=== PATIENT | male | born 1965 | race Caucasian/White ===

== ENCOUNTER 2025-02-19 02:52 | Emergency (ER) | payer OTHER, SELFPAY ==
--- NOTE | ~2025-02-19 | CT_ITS ---
EXAMINATION: CT abdomen pelvis wo con DATE: 02/19/2025 04:31 INDICATION: Left flank pain. TECHNIQUE: Computed tomography (CT) of the abdomen and pelvis was performed without intravenous contrast. Automated exposure control and iterative reconstruction technique were employed. The dose-length product was 289.69 mGy-cm. COMPARISON: None. FINDINGS: The visualized portions of the lung bases demonstrate mild atelectasis. No pleural effusion. The heart size is normal. No pericardial effusion. There is diffuse hepatic steatosis. The gallbladder, spleen, pancreas, adrenal glands, and right kidney are normal. There is mild left hydronephrosis and hydroureter. There is a 3 mm stone at the left ureterovesicular junction. There is prominent fat in left inguinal canal that may be a hernia. There is diverticulosis of the colon without evidence of diverticulitis. The appendix is normal. There are no dilated loops of bowel. There are no pathologically enlarged lymph nodes. There is no free intraperitoneal fluid. There is mild lumbar spondylosis and moderate thoracic spondylosis. IMPRESSION: 1. 3 mm stone at left ureterovesicular junction with mild left hydronephrosis and hydroureter. Reviewed, dictated and finalized at location E. IMPRESSION: 1. 3 mm stone at left ureterovesicular junction with mild left hydronephrosis a nd hydroureter.
[2025-02-19 02:54] VITALS: BP 161/91; PULSE 83; RESP 18; TEMP 36.6; O2SAT 98
[2025-02-19] MEDS: MORPHINE SULFATE (*CRX) 4 MG/ML INJ IV PUSH (03:14)
[2025-02-19] MEDS: ONDANSETRON INJ 4 MG/2 ML VIAL IV PUSH (03:14)
[2025-02-19] MEDS: SODIUM CHLORIDE 0.9% IV 1,000 ML 999 ML IV CONT (03:15)
[2025-02-19 03:22] LABS: Hematocrit 49.6 % (42.0-52.0); Hemoglobin 16.6 g/dL (14.0-18.0); Immature Granulocyte Percent A 0.8 % (0-0.5); Lymphocytes Absolute Auto 1.50 K/mm3 (0.9-3.2); Mean Corpuscular HGB Conc 33.5 g/dl (32-36); Mean Corpuscular Hemoglobin 31.0 pg (26-34); Mean Corpuscular Volume 92.7 fl (80-100); Nucleated Red Blood Cells Absolute Auto 0.000 K/mm3 (0.0-0.012); Nucleated Red Blood Cells Perc 0.0 % (0.0-0.2); Platelet Count Result 170 k/mm3 (150-375); Red Blood Count 5.35 M/mm3 (4.6-6.20); White Blood Count 11.8 K/mm3 (4.5-10.0)
[2025-02-19 03:36] LABS: Add Urine Microscopic? NO; Appearance Urine Clear (Clear); Glucose Urine UA Negative (Negative); Leukocyte Esterase Ur Negative LEU/UL (Negative); Nitrate Urine Negative (Negative); Specific Grav Ur 1.020 (1.001-1.035)
[2025-02-19 03:38] LABS: Alanine Aminotransferase 34 U/L (6-50); Albumin Level 4.3 g/dL (3.5-5.1); Alkaline Phosphatase 72 U/L (38-126); Anion Gap 9 mmol/L (4-12); Aspartate Amino Transferase 41 U/L (17-59); Bilirubin,Total 0.7 mg/dL (0.2-1.3); Blood Urea Nitrogen 22 mg/dL (9-20); Calcium 8.6 mg/dL (8.4-10.2); Carbon Dioxide 23 mmol/L (22-30); Chloride 104 mmol/L (98-107); Estimated CRCL calculation 52 ml/min; Estimated Glomerular Filt Rate 51; Glucose 137 mg/dL (65-110); Lipase 201 U/L (23-300); Magnesium 2.0 mg/dL (1.6-2.3); Potassium 4.2 mmol/L (3.4-5.0); Sodium 136 mmol/L (137-145); Total Protein 7.3 g/dL (6.3-8.2)
--- NOTE | 2025-02-19 04:12 | ED_ITS ---
HPI - Back Pain/Injury General Chief Complaint: Back Pain/Injury <Frantz Mckeon MD - Last Filed: 02/19/25 07:02> Stated Complaint: L lower back pain <Frantz Mckeon MD - Last Filed: 02/19/25 07:02> Time Seen by Provider: 02/19/25 03:03 <Frantz Mckeon MD - Last Filed: 02/19/25 07:02> History of Present Illness HPI Narrative: Patient is a 59-year-old male who presents the emergency department this evening complaining of left lower back / flank pain. Patient states that symptoms started after he went to the gym today and was lifting weights. Initially he thought it was due to that, however, pain continued to get worse and persisted. Patient states that he has had history of kidney stones and states that this pain does feel similar to that more than musculoskeletal strain. Admits that the pain does radiate to his left groin region. Denies any urinary symptoms including hematuria or dysuria. No additional symptoms or concerns at this time. <Frantz Mckeon MD - Last Filed: 02/19/25 07:02> Related Data Allergies/Adverse Reactions: Allergies Allergy/AdvReac Type Severity Reaction Status Date / Time No Known Allergies Allergy Verified 02/19/25 02:54 <Frantz Mckeon MD - Last Filed: 02/19/25 07:02> Review of Systems 2 Review of Systems: All systems are reviewed and are negative unless stated otherwise in the HPI. <Frantz Mckeon MD - Last Filed: 02/19/25 07:02> Exam 2 Narrative: General: Alert, awake, afebrile, in no acute distress. HEENT: PERRL, no rhinorrhea, no post nasal drip, oropharynx clear. Neck: Trachea midline, no JVD, no lymphadenopathy. Cardiovascular: Regular rate and rhythm, no murmurs, rubs or gallops, no peripheral edema. Respiratory: Clear to auscultation bilaterally, no tachypnea, no wheezing, no rhonchi, no rubs, no respiratory distress. Abdomen: Soft, nontender, nondistended, no rebound, no guarding, no peritoneal signs. Musculoskeletal: No joint swelling or deformity, normal muscle tone. Back: No midline tenderness to palpation over the thoracolumbar spine. Skin: No rashes or petechia, no signs of infection. Psychiatric: Alert and oriented, normal behavior and judgment for situation. Neurological: Alert and oriented to person, place, and time. Follows all commands. No focal deficits, speech is clear and fluent. <Frantz Mckeon MD - Last Filed: 02/19/25 07:02> Course Course Emergency Course: Patient resting comfortably. Informed results. Appropriate for discharge home. <Anthony Cintron MD - Last Filed: 02/19/25 08:02> Vital Signs Vital signs: Vital Signs Temperature 97.8 F 02/19/25 02:54 Pulse Rate 83 02/19/25 02:54 Respiratory Rate 18 02/19/25 02:54 Blood Pressure 161/91 H 02/19/25 02:54 Pulse Oximetry 98 02/19/25 02:54 Oxygen Delivery Room Air 02/19/25 02:54 Temperature 97.8 F 02/19/25 02:54 Pulse Rate 85 02/19/25 07:00 Respiratory Rate 14 02/19/25 07:00 Blood Pressure 143/75 H 02/19/25 07:00 Pulse Oximetry 98 02/19/25 07:00 Oxygen Delivery Room Air 02/19/25 02:54 <Frantz Mckeon MD - Last Filed: 02/19/25 07:02> Vital Signs Temperature 97.8 F 02/19/25 02:54 Pulse Rate 83 02/19/25 02:54 Respiratory Rate 18 02/19/25 02:54 Blood Pressure 161/91 H 02/19/25 02:54 Pulse Oximetry 98 02/19/25 02:54 Oxygen Delivery Room Air 02/19/25 02:54 Temperature 97.8 F 02/19/25 02:54 Pulse Rate 85 02/19/25 07:00 Respiratory Rate 14 02/19/25 07:00 Blood Pressure 143/75 H 02/19/25 07:00 Pulse Oximetry 98 02/19/25 07:00 Oxygen Delivery Room Air 02/19/25 02:54 <Anthony Cintron MD - Last Filed: 02/19/25 08:02> MDM - Back Pain/Injury MDM Narrative Medical decision making narrative: The patient was evaluated by myself in the emergency department. History is obtained from patient who is an independent historian and physical exam was performed. External medical records were reviewed at this time. IV was established and pertinent tests were ordered. Patient was administered 1 L IV fluid bolus with normal saline, 4 mg of IV morphine and 4 mg of IV Zofran with improvement of his symptoms. Laboratory results obtained revealing a creatinine of 1.3, otherwise unremarkable. No previous blood work available for comparison. Urinalysis unremarkable. Imaging studies obtained included CT abdomen and pelvis without IV contrast which is currently pending. Patient was signed out to AM ED physician pending CT scan. <Frantz Mckeon MD - Last Filed: 02/19/25 07:02> Lab Data Result diagrams: 02/19/25 03:13 02/19/25 03:13 <Frantz Mckeon MD - Last Filed: 02/19/25 07:02> Labs: Lab Results 02/19/25 02/19/25 Range/Units 03:03 03:13 WBC 11.8 H (4.5-10.0) K/mm3 RBC 5.35 (4.6-6.20) M/mm3 Hgb 16.6 (14.0-18.0) g/dL Hct 49.6 (42.0-52.0) % MCV 92.7 (80-100) fl MCH 31.0 (26-34) pg MCHC 33.5 (32-36) g/dl RDW 12.9 (11.5-14.5) % Plt Count 170 (150-375) k/mm3 MPV 10.4 (7.4-10.4) fl Immature Gran % (Auto) 0.8 H (0-0.5) % Neut % (Auto) 81.8 H (45.5-73.1) % Lymph % (Auto) 12.7 L (18.3-44.2) % Republic % (Auto) 4.2 (2.6-8.5) % Eos % (Auto) 0.2 (0-4.4) % Baso % (Auto) 0.3 (0.2-1.2) % Lymph # (Auto) 1.50 (0.9-3.2) K/mm3 Republic # (Auto) 0.5 (0.1-0.6) K/mm3 Eos # (Auto) 0.0 (0-0.3) K/mm3 Baso # (Auto) 0.0 (0.0-0.1) K/mm3 Abs Immat Gran (auto) 0.09 H (0.00-0.031) K/mm3 Absolute Neuts (auto) 9.6 H (1.3-6.7) K/mm3 Absolute Nucleated RBC 0.000 (0.0-0.012) K/mm3 Nucleated RBC % 0.0 (0.0-0.2) % Sodium 136 L (137-145) mmol/L Potassium 4.2 (3.4-5.0) mmol/L Chloride 104 (98-107) mmol/L Carbon Dioxide 23 (22-30) mmol/L Anion Gap 9 (4-12) mmol/L BUN 22 H (9-20) mg/dL Creatinine 1.43 H (0.7-1.3) mg/dL Estim Creat Clear Calc 52 ml/min Estimated GFR 51 L (59 - ) Glucose 137 H (65-110) mg/dL Calcium 8.6 (8.4-10.2) mg/dL Magnesium 2.0 (1.6-2.3) mg/dL Total Bilirubin 0.7 (0.2-1.3) mg/dL AST 41 (17-59) U/L ALT 34 (6-50) U/L Alkaline Phosphatase 72 (38-126) U/L Total Protein 7.3 (6.3-8.2) g/dL Albumin 4.3 (3.5-5.1) g/dL Lipase 201 (23-300) U/L Urine Color Yellow (Yellow) Urine Appearance Clear (Clear) Urine pH 5.0 (5.0-9.0) Ur Specific [place] 1.020 (1.001-1.035) Urine Protein Negative (Negative) mg/dL Urine Glucose (UA) Negative (Negative) mg/dL Urine Ketones Negative (Negative) mg/dL Ur Blood (Man) Negative (Negative) Urine Nitrate Negative (Negative) Urine Bilirubin Negative (Negative) Urine Urobilinogen 0.2 (<2.0) mg/dL Leukocyte Esterase Rfl Negative (Negative) JUAN C/UL <Frantz Mckeon MD - Last Filed: 02/19/25 07:02> Lab Results 02/19/25 02/19/25 Range/Units 03:03 03:13 WBC 11.8 H (4.5-10.0) K/mm3 RBC 5.35 (4.6-6.20) M/mm3 Hgb 16.6 (14.0-18.0) g/dL Hct 49.6 (42.0-52.0) % MCV 92.7 (80-100) fl MCH 31.0 (26-34) pg MCHC 33.5 (32-36) g/dl RDW 12.9 (11.5-14.5) % Plt Count 170 (150-375) k/mm3 MPV 10.4 (7.4-10.4) fl Immature Gran % (Auto) 0.8 H (0-0.5) % Neut % (Auto) 81.8 H (45.5-73.1) % Lymph % (Auto) 12.7 L (18.3-44.2) % Republic % (Auto) 4.2 (2.6-8.5) % Eos % (Auto) 0.2 (0-4.4) % Baso % (Auto) 0.3 (0.2-1.2) % Lymph # (Auto) 1.50 (0.9-3.2) K/mm3 Republic # (Auto) 0.5 (0.1-0.6) K/mm3 Eos # (Auto) 0.0 (0-0.3) K/mm3 Baso # (Auto) 0.0 (0.0-0.1) K/mm3 Abs Immat Gran (auto) 0.09 H (0.00-0.031) K/mm3 Absolute Neuts (auto) 9.6 H (1.3-6.7) K/mm3 Absolute Nucleated RBC 0.000 (0.0-0.012) K/mm3 Nucleated RBC % 0.0 (0.0-0.2) % Sodium 136 L (137-145) mmol/L Potassium 4.2 (3.4-5.0) mmol/L Chloride 104 (98-107) mmol/L Carbon Dioxide 23 (22-30) mmol/L Anion Gap 9 (4-12) mmol/L BUN 22 H (9-20) mg/dL Creatinine 1.43 H (0.7-1.3) mg/dL Estim Creat Clear Calc 52 ml/min Estimated GFR 51 L (59 - ) Glucose 137 H (65-110) mg/dL Calcium 8.6 (8.4-10.2) mg/dL Magnesium 2.0 (1.6-2.3) mg/dL Total Bilirubin 0.7 (0.2-1.3) mg/dL AST 41 (17-59) U/L ALT 34 (6-50) U/L Alkaline Phosphatase 72 (38-126) U/L Total Protein 7.3 (6.3-8.2) g/dL Albumin 4.3 (3.5-5.1) g/dL Lipase 201 (23-300) U/L Urine Color Yellow (Yellow) Urine Appearance Clear (Clear) Urine pH 5.0 (5.0-9.0) Ur Specific [place] 1.020 (1.001-1.035) Urine Protein Negative (Negative) mg/dL Urine Glucose (UA) Negative (Negative) mg/dL Urine Ketones Negative (Negative) mg/dL Ur Blood (Man) Negative (Negative) Urine Nitrate Negative (Negative) Urine Bilirubin Negative (Negative) Urine Urobilinogen 0.2 (<2.0) mg/dL Leukocyte Esterase Rfl Negative (Negative) JUAN C/UL <Anthony Cintron MD - Last Filed: 02/19/25 08:02> Imaging Data Radiologist's impression: CT abdomen pelvis without contrast: There is a left-sided hydroureteronephrosis due to the presence of a left vesicoureteral junction calculus measuring 3 mm <Anthony Cintron MD - Last Filed: 02/19/25 08:02> Discharge Plan Discharge Clinical Impression: Left flank pain <Frantz Mckeon MD - Last Filed: 02/19/25 07:02> Patient Disposition: Home <Frantz Mckeon MD - Last Filed: 02/19/25 07:02> Condition: Improved <Frantz Mckeon MD - Last Filed: 02/19/25 07:02> Instructions: Kidney Stones (ED) <Frantz Mckeon MD - Last Filed: 02/19/25 07:02> Additional Instructions: Return ER if you have worsening pain, you cannot keep down food/water/medication, you lose consciousness, or have additional concerns. <Frantz Mckeon MD - Last Filed: 02/19/25 07:02> Patient Language: Guamanian <Frantz Mckeon MD - Last Filed: 02/19/25 07:02> Prescriptions: New ketorolac 10 mg tablet 10 mg PO QID Qty: 4 0RF Rx Instructions: maximum total duration of 5 days from all oral, intranasal, or parenteral formulations ondansetron 4 mg tablet,disintegrating 4 mg PO Q6H PRN (Reason: nausea and vomiting) Qty: 7 0RF <Frantz Mckeon MD - Last Filed: 02/19/25 07:02> Follow-up/Referrals: Goldberg,Long Garcia MD [Primary Care Provider] - 1 Week <Frantz Mckeon MD - Last Filed: 02/19/25 07:02>
[2025-02-19] MEDS: KETOROLAC 15 MG/ML VIAL (*BKC) IV PUSH (04:36)
[2025-02-19 07:00] VITALS: BP 143/75; PULSE 85; RESP 14; O2SAT 98
[2025-02-19 08:16] VITALS: BP 142/80; PULSE 85; RESP 16; O2SAT 98
== END 2025-02-19 08:18 | disposition home or self-care (01) ==
PROVIDERS: Emergency Provider Emergency Medicine; PCP Internal Medicine
DX: N13.2 Hydronephrosis with renal and ureteral calculous obstruction (principal); Z87.442 Personal history of urinary calculi
CPT/HCPCS: 36415; 74176; 80053; 81003; 83690; 83735; 85025; 96361; 96374; 96375; 99284; J1885; J2270; J2405; J7030